=== PATIENT | female | born 1965 | race Caucasian/White ===

== ENCOUNTER 2018-11-22 11:59 | Emergency (ER) | payer MEDICAID ==
[~2018-11-22] VITALS: Ht 160 cm; Wt 75.5 kg
[2018-11-22 12:02] VITALS: BP 164/93
[2018-11-22] MEDS ORDERED: HTN PO (12:08)
[2018-11-22] MEDS ORDERED: ATOR40TA28 PO (12:08)
[2018-11-22] MEDS ORDERED: ACETAMINOPHEN 325 MG TABLET PO ONE (13:00)
[2018-11-22] MEDS ORDERED: LOSA50TA64 PO (13:14)
== END 2018-11-22 13:22 | disposition home or self-care (01) ==
LOC: EMS 12:01
DX: M25.562 Pain in left knee (principal); M79.89 Other specified soft tissue disorders; R20.0 Anesthesia of skin; E78.00 Pure hypercholesterolemia, unspecified; I10 Essential (primary) hypertension

== ENCOUNTER 2025-03-13 23:01 | Emergency (ER) | payer MEDICAID, OTHER ==
[~2025-03-13] VITALS: Ht 154.9 cm; Wt 62.7 kg
[~2025-03-13 23:01] MED LIST: ATOR40TA28 PO; LOSA-382 PO
[2025-03-13 23:05] VITALS: TEMP 97.9
[2025-03-13 23:27] LABS: PLATELET COUNT (AUTO) 174 K/uL (150-450); RED BLOOD CELL COUNT(AUTO) 4.20 MIL/uL (4.00-5.20); RED CELL DISTRIBUTION WIDTH 12.6 % (11.5-14.5); WHITE BLOOD COUNT (AUTO) 6.1 K/uL (4.5-11.0)
[2025-03-13 23:38] LABS: CALCIUM, TOTAL 9.3 mg/dL (8.8-10.5); CREATININE 0.71 mg/dL (0.60-1.30); GLOMERULAR FILTR. RATE CALC > 60 mL/min (>60); GLUCOSE,RANDOM 135 mg/dL (70-110); SODIUM SERUM 136 mmol/L (136-145); UREA NITROGEN, BLOOD 15 mg/dL (7-18)
[2025-03-13 23:47] LABS: TROPONIN I-HIGH SENSITIVITY 8 ng/L (<51)
[2025-03-14 03:19] LABS: APPEARANCE,URINE CLEAR (CLEAR); GLUCOSE, URINE (UA) NEGATIVE (NEGATIVE); LEUKOCYTE ESTERASE ,URINE MODERATE (NEGATIVE); NITRATE,URINE NEGATIVE (NEGATIVE); OCCULT BLOOD,URINE NEGATIVE (NEGATIVE); SPECIFIC GRAVITIY, URINE 1.014 (1.003-1.030)
[2025-03-14 03:26] LABS: SQUAMOUS EPITHELIAL CELL,UR Few /LPF (None Seen)
[2025-03-14] MEDS ORDERED: CEPH-558 PO (04:15)
[2025-03-14] MEDS: CEPHALEXIN MONOHYDRATE 500 MG CAPSULE PO ONE (04:25)
[2025-03-14 04:32] VITALS: BP 138/71; PULSE 70; RESP 16; O2SAT 98
== END 2025-03-14 04:35 | disposition home or self-care (01) ==
LOC: EMS 03-14 00:04
DX: I10 Essential (primary) hypertension (principal); N39.0 Urinary tract infection, site not specified; E78.00 Pure hypercholesterolemia, unspecified; Z98.890 Other specified postprocedural states; Z79.899 Other long term (current) drug therapy
CPT/HCPCS: 80048; 81001; 84484; 85025; 93005; 99284